=== PATIENT | male | born 1990 | race African-American/Black ===

== ENCOUNTER 2019-10-26 03:49 | Emergency (ER) | payer OTHER ==
[2019-10-26 03:56] VITALS: BP 145/93; PULSE 60; RESP 16; TEMP 97.5
--- NOTE | 2019-10-26 04:19 | ED ---
General Adult HPI - General Chief complaint: Skin/Abscess/Foreign Body Stated complaint: Hemorrhoids Time Seen by Provider: 10/26/19 04:01 Source: patient Mode of arrival: ambulatory Limitations: no limitations - History of Present Illness Initial comments: Patient is a 29-year-old man with perianal pain. He states it started at work when he strained to have a bowel movement. He also noted that there was swelling at the anus. -: hour(s) Location: buttocks Radiation: non-radiation Quality: aching Consistency: constant Improves with: none Worsens with: other (Sitting) Associated Symptoms: denies other symptoms Treatments Prior to Arrival: none - Related Data Allergies Allergy/AdvReac Type Severity Reaction Status Date / Time No Known Allergies Allergy Verified 10/26/19 03:56 Review of Systems ROS Statement: Those systems with pertinent positive or pertinent negative responses have been documented in the HPI. ROS Other: All systems not noted in ROS Statement are negative. Constitutional: Denies: fever Respiratory: Denies: cough, dyspnea Cardiovascular: Denies: chest pain, palpitations Gastrointestinal: Reports: constipation. Denies: abdominal pain, vomiting, diarrhea, melena, hematochezia Genitourinary: Denies: dysuria Musculoskeletal: Denies: back pain Skin: Denies: rash Neurological: Denies: headache Past Medical History Past Medical History: No Reported History History of Any Multi-Drug Resistant Organisms: None Reported Past Surgical History: No Surgical Hx Reported Past Psychological History: No Psychological Hx Reported Smoking Status: Never smoker Past Alcohol Use History: None Reported Past Drug Use History: Marijuana General Exam Limitations: no limitations General appearance: alert, in no apparent distress Head exam: Present: atraumatic, normocephalic Eye exam: Present: normal appearance. Absent: scleral icterus, conjunctival injection Respiratory exam: Present: normal lung sounds bilaterally. Absent: respiratory distress, wheezes, rales, rhonchi, stridor Cardiovascular Exam: Present: regular rate, normal rhythm, normal heart sounds. Absent: systolic murmur, diastolic murmur, rubs, gallop GI/Abdominal exam: Present: soft. Absent: distended, tenderness, guarding, rebound, rigid, mass Rectal exam: Present: tenderness, other (Rectal mucosal prolapse present) Back exam: Present: normal inspection. Absent: CVA tenderness (R), CVA t enderness (L) Neurological exam: Present: alert Skin exam: Present: warm, dry, intact, normal color. Absent: rash Course Vital Signs 10/26/19 03:54 Temperature 97.5 F L Pulse Rate 60 Respiratory 16 Rate Blood Pressure 145/93 O2 Sat by Pulse 97 Oximetry Medical Decision Making - Medical Decision Making Patient is 29-year-old man presenting with rectal mucosal prolapse. I did apply pressure at the bedside to reduce the rectal prolapse. I discussed further care with the patient, including fiber supplement, possibility of stool softener, avoiding straining at bowel movements, and appropriate follow-up. Disposition Clinical Impression: Rectal prolapse Disposition: HOME SELF-CARE Condition: Good Instructions (If sedation given, give patient instructions): Rectal Prolapse (ED) Is patient prescribed a controlled substance at d/c from ED?: No Referrals: None,Stated [Primary Care Provider] - 1-2 days Bob Marie MD [STAFF PHYSICIAN] - 1-2 days
== END 2019-10-26 04:50 | disposition home or self-care (01) ==
LOC: EC 03:49
DX: K62.3 Rectal prolapse (principal)
CPT/HCPCS: 99282